=== PATIENT | female | born 1995 | race Caucasian/White ===

== ENCOUNTER 2017-11-01 06:41 | Emergency (ER) | payer OTHER ==
[~2017-11-01] VITALS: Ht 149.9 cm; Wt 46.6 kg
[~2017-11-01 06:41] MED LIST: AMPH10TA2 PO; FLUO40CA8 PO
[2017-11-01 06:47] VITALS: TEMP 36.3; Ht 149.9 cm; Wt 46.6 kg
[2017-11-01] MEDS ORDERED: ONDANSETRON INJ 2 MG/ML 2 ML VIAL IV STA (07:01)
[2017-11-01] MEDS ORDERED: SODIUM CHLORIDE 0.9% 500ML 500 ML IV STA (07:01)
[2017-11-01] MEDS ORDERED: MoRPHine SULFATE 2 MG/ML CARP IV STA (07:01)
--- NOTE | 2017-11-01 07:10 | EMERGENCY ROOM VISIT NOTE ---
History First contact with patient: 06:50 Chief Complaint: ABDOMINAL PAIN Stated Complaint: SEVERE ABD PAIN Nursing Triage Summary: upper abdominal pain since 0030 last night. vomiting. History of Present Illness The patient is a 22 year old female who presents to the Emergency Room with complaints of "abdominal pain, nausea". The patient states that around 12:30 AM she began with nausea, followed by left upper quadrant and epigastric abdominal pain and vomiting at 410 and 5:55 AM. She notes persistent nausea. She states that she did a new bag of salad and ate it last night. 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 No other significant medical history. She states that she also is experiencing sensation of constipation and increased flatulence. She rates her overall pain currently as an 8/10. Review of Systems A complete 10-point Review of Systems was discussed with the patient, with pertinent positives and negatives listed in the History of Present Illness. All remaining Review of Systems questions can be considered negative unless otherwise specified. Past Medical/Surgical History Medical Problems: (1) No known allergies (2) No significant medical problems Family History No pertinent family history Social History Smoking Status: Never Smoker Drug Use: none Marital Status: single Housing Status: lives with roommate Occupation Status: [employer] Current/Historical Medications Scheduled Ondasetron Odt (Zofran Odt), 4 MG SL Q6H Physical Exam Vital Signs Date Time Temp Pulse Resp B/P (MAP) Pulse Ox O2 Delivery O2 Flow Rate FiO2 11/01/17 09:59 55 18 91/57 98 11/01/17 08:53 63 16 98/48 98 Room Air 11/01/17 06:47 36.3 60 24 92/58 100 Room Air Physical Exam VITAL SIGNS - Vital signs and nursing notes were reviewed. Stable. GENERAL - 22-year-old female appearing her stated age who is in no acute distress. Communicates well with provider and answers questions appropriately. SKIN - Without rashes. No petechial rashes. HEAD - NC/AT. EYES - PERRL with EOMI bilaterally. Sclera anicteric. EARS - No deformities of external structures noted on gross examination bilaterally. NOSE - Midline and without cyanosis. No epistaxis or purulent drainage noted. MOUTH/OROPHARYNX - Without perioral cyanosis. LUNGS - Chest wall symmetric without accessory muscle use, intercostals retractions, or central cyanosis. Normal vesicular breath sounds CTA B/L. No wheezes, rales, or rhonchi appreciated. CARDIAC - RRR with S1/S2. No murmur, rubs, or gallops appreciated. ABDOMEN - Abdominal contour normal without pulsations or visible masses. BS normoactive all four quadrants. No tenderness, palpable masses, hepatosplenomegaly, or ascites noted. EXTREMITIES - No clubbing or peripheral cyanosis. No pretibial edema present. + 5/5 strength noted in UE/LE bilaterally. NEUROLOGIC - Cranial nerves II through XII grossly intact. Sensory intact to light touch throughout. PSYCH - A&O, and cooperates fully with examiner. Pt is very pleasant and interacts well with examiner. Medical Decision & Procedures ER Provider Diagnostic Interpretation: GALLBLADDER-ABD LIMITED HISTORY: 22 years-old Female Nausea, LUQ and epigastric abd pain, emesis acute nausea with left upper quadrant abdominal pain COMPARISON: None available TECHNIQUE: Multiple real-time sonographic images of the abdominal right upper quadrant were obtained assessing grayscale appearance and color flow FINDINGS: The visualized pancreas appears unremarkable. The liver is also within normal limits without focal mass lesion or intrahepatic biliary ductal dilation. There is no shadowing cholelithiasis or gallbladder wall thickening. There are two echogenic non-shadowing foci along the dependent gallbladder lumen measuring up to 4 mm without internal vascularity identified. Common bile duct is normal, 3 mm. Imaged right kidney is unremarkable without hydronephrosis identified. IMPRESSION: 1. No cholelithiasis or sonographic evidence of acute cholecystitis. 2. Two echogenic non-shadowing foci along the dependent gallbladder lumen measuring up to 4 mm suggest adherent focal gallbladder sludge or small gallbladder polyps. 3. No biliary ductal dilation. The above report was generated using voice recognition software. It may contain grammatical, syntax or spelling errors. Electronically signed by: Dio iPerce M.D. 11/01/2017 8:19 AM Dictated Date/Time: 11/01/2017 8:16 AM Laboratory Results 11/01/17 06:55 Red Blood Count 4.21, Mean Corpuscular Volume 82.9, Mean Corpuscular Hemoglobin 29.9, Mean Corpuscular Hemoglobin Concent 36.1, Mean Platelet Volume 9.7, Neutrophils (%) (Auto) 89.3, Lymphocytes (%) (Auto) 8.1, Monocytes (%) (Auto) 2.1, Eosinophils (%) (Auto) 0.1, Basophils (%) (Auto) 0.1, Neutrophils # (Auto) 10.29, Lymphocytes # (Auto) 0.93, Monocytes # (Auto) 0.24, Eosinophils # (Auto) 0.01, Basophils # (Auto) 0.01 11/01/17 06:55 11/01/17 08:19 Test 11/01/17 06:55 11/01/17 07:01 11/01/17 08:19 White Blood Count 11.51 K/uL (4.8-10.8) Red Blood Count 4.21 M/uL (4.2-5.4) Hemoglobin 12.6 g/dL (12.0-16.0) Hematocrit 34.9 % (37-47) Mean Corpuscular Volume 82.9 fL (80-100) Mean Corpuscular Hemoglobin 29.9 pg (25-34) Mean Corpuscular Hemoglobin Concent 36.1 g/dl (32-36) Platelet Count 188 K/uL (130-400) Mean Platelet Volume 9.7 fL (7.4-10.4) Neutrophils (%) (Auto) 89.3 % Lymphocytes (%) (Auto) 8.1 % Monocytes (%) (Auto) 2.1 % Eosinophils (%) (Auto) 0.1 % Basophils (%) (Auto) 0.1 % Neutrophils # (Auto) 10.29 K/uL (1.4-6.5) Lymphocytes # (Auto) 0.93 K/uL (1.2-3.4) Monocytes # (Auto) 0.24 K/uL (0.11-0.59) Eosinophils # (Auto) 0.01 K/uL (0-0.5) Basophils # (Auto) 0.01 K/uL (0-0.2) RDW Standard Deviation 40.2 fL (36.4-46.3) RDW Coefficient of Variation 13.2 % (11.5-14.5) Immature Granulocyte % (Auto) 0.3 % Immature Granulocyte # (Auto) 0.03 K/uL (0.00-0.02) Urine Color YELLOW Urine Appearance CLOUDY (CLEAR) Urine pH 5.5 (4.5-7.5) Urine Specific [place] 1.034 (1.000-1.030) Urine Protein 1+ (NEG) Urine Glucose (UA) NEG (NEG) Urine Ketones 3+ (NEG) Urine Occult Blood 3+ (NEG) Urine Nitrite NEG (NEG) Urine Bilirubin NEG (NEG) Urine Urobilinogen NEG (NEG) Urine Leukocyte Esterase NEG (NEG) Urine WBC (Auto) 1-5 /hpf (0-5) Urine RBC (Auto) 0-4 /hpf (0-4) Urine Hyaline Casts (Auto) 1-5 /lpf (0-5) Urine Epithelial Cells (Auto) >30 /lpf (0-5) Urine Bacteria (Auto) 1+ (NEG) Urine Crystals AMORPHOUS SEDIMENT (NONE Urine Mucus PRESENT (NONE PRSENT) Urine Yeast (Auto) (NONE PRSENT) Anion Gap 10.0 mmol/L (3-11) Est Creatinine Clear Calc Drug Dose 76.2 ml/min Estimated GFR () 123.2 Estimated GFR (Non- 106.3 BUN/Creatinine Ratio 17.6 (10-20) Calcium Level 9.0 mg/dl (8.5-10.1) Total Bilirubin 0.5 mg/dl (0.2-1) Alanine Aminotransferase (ALT/SGPT) 23 U/L (12-78) Alkaline Phosphatase 66 U/L (45-117) Total Protein 7.9 gm/dl (6.4-8.2) Albumin 4.5 gm/dl (3.4-5.0) Globulin 3.4 gm/dl (2.5-4.0) Albumin/Globulin Ratio 1.3 (0.9-2) Lipase 63 U/L (73-393) Urine Test NEG (NEG) Magnesium Level 2.0 mg/dl (1.8-2.4) Aspartate Amino Transf (AST/SGOT) 13 U/L (15-37) Medications Administered Medications (Trade) Dose Ordered Sig/Melinda Route Start Time Stop Time Status Last Admin Dose Admin Sodium Chloride 500 ml @ 999 mls/hr Q31M STAT IV 11/01/17 07:01 11/01/17 07:31 DC 11/01/17 07:01 999 MLS/HR Ondansetron HCl (Zofran Inj) 4 mg NOW STAT IV 11/01/17 07:01 11/01/17 07:03 DC 11/01/17 07:14 4 MG Morphine Sulfate (MoRPHine SULFATE INJ) 2 mg NOW STAT IV 11/01/17 07:01 11/01/17 07:03 DC 11/01/17 07:14 2 MG Medical Decision Patient was seen and evaluated as above. She presents to us today with epigastric abdominal pain she has vomiting and nausea. She is nontoxic on exam. After obtaining a thorough history and physical examination the above work up was performed. CBC reveals leukocytosis of 11.51. No significant anemia. Patient Should panel reveals sodium of 135. No concerning liver or kidney abnormality. Lipase 63. Urine reveals what I believe to be a contaminated sample. Urine test negative. Ultrasound reveals essentially no acute process. After small amount of morphine, fluids and Zofran she is feeling much better. She'll be sent home with Zofran by mouth. She is to follow-up with [facility] or return if worsening. The patient was educated upon management, had questions answered prior to discharge, and was discharged home in good condition. Case was discussed with the attending physician In the evaluation and treatment of this patient the following differential diagnoses were entertained: Acute cholecystitis, gastroenteritis, pancreatitis, among others. Impression Primary Impression: Acute gastroenteritis Departure Information Dispostion Home / Self-Care Condition GOOD Prescriptions Ondasetron Odt (ZOFRAN ODT) 4 Mg Tab 4 MG SL Q6H for Nausea, #15 TAB Prov: Abelino Howard PA-C 11/01/17 Referrals No Doctor, Assigned (PCP) Patient Instructions My [facility] Additional Instructions You have been treated in the Emergency Department your Abdominal Pain. Laboratory results and imaging studies have ruled out any emergent causes for your abdominal pain which would warrant admission or surgery. You have been prescribed Zofran to be used for any nausea or vomiting. Take as prescribed. For pain control, you can use the following [id number] medicines: - Regular strength (325mg/tab) Tylenol (acetaminophen) 2 tabs every 4-6 hours as needed. Do not exceed 12 tablets in a 24 hour period. Avoid taking more than 3 grams (3000 mg) of Tylenol per day. This includes any other sources of acetaminophen you may take on a regular basis. - Regular strength (200 mg/tab) Advil (ibuprofen) 1-2 tabs every 4-6 hours as needed. Do not exceed a dose of 3200 mg per day. Drink plenty of water and stay well hydrated. As with any trip to the Emergency Department, you should follow-up with your Primary Care Provider from today's visit. Return to the emergency department if your symptoms persist despite treatment plan outlined above or if the following symptoms occur: increased fevers, chills , worsening nausea/vomiting, blood in your stool or urine.
[2017-11-01 07:23] LABS: BASO % 0.1 %; BASO ABS # 0.01 K/uL (0-0.2); EOS % 0.1 %; EOS ABS # 0.01 K/uL (0-0.5); HEMATOCRIT 34.9 % (37-47); HEMOGLOBIN 12.6 g/dL (12.0-16.0); IG# 0.03 K/uL (0.00-0.02); LYMPH % 8.1 %; LYMPH ABS # 0.93 K/uL (1.2-3.4); MEAN CELL VOLUME 82.9 fL (80-100); MEAN CORPUSCULAR HEMOGLOBIN 29.9 pg (25-34); MEAN CORPUSCULAR HGB CONC 36.1 g/dl (32-36); MEAN PLATELET VOLUME 9.7 fL (7.4-10.4); MONO % 2.1 %; MONO ABS # 0.24 K/uL (0.11-0.59); NEUT % 89.3 %; NEUT ABS # 10.29 K/uL (1.4-6.5); PLATELET COUNT 188 K/uL (130-400); RED CELL DISTRIBUTION WIDTH CV 13.2 % (11.5-14.5); RED CELL DISTRIBUTION WIDTH SD 40.2 fL (36.4-46.3); WHITE BLOOD COUNT 11.51 K/uL (4.8-10.8)
[2017-11-01 07:50] LABS: ALBUMIN 4.5 gm/dl (3.4-5.0); CREATININE 0.79 mg/dl (0.60-1.20); TOTAL PROTEIN 7.9 gm/dl (6.4-8.2)
--- NOTE | 2017-11-01 08:20 | DIAGNOSTIC IMAGING REPORT ---
GALLBLADDER-ABD LIMITED HISTORY: 22 years-old Female Nausea, LUQ and epigastric abd pain, emesis acute nausea with left upper quadrant abdominal pain COMPARISON: None available TECHNIQUE: Multiple real-time sonographic images of the abdominal right upper quadrant were obtained assessing grayscale appearance and color flow FINDINGS: The visualized pancreas appears unremarkable. The liver is also within normal limits without focal mass lesion or intrahepatic biliary ductal dilation. There is no shadowing cholelithiasis or gallbladder wall thickening. There are two echogenic non-shadowing foci along the dependent gallbladder lumen measuring up to 4 mm without internal vascularity identified. Common bile duct is normal, 3 mm. Imaged right kidney is unremarkable without hydronephrosis identified. IMPRESSION: 1. No cholelithiasis or sonographic evidence of acute cholecystitis. 2. Two echogenic non-shadowing foci along the dependent gallbladder lumen measuring up to 4 mm suggest adherent focal gallbladder sludge or small gallbladder polyps. 3. No biliary ductal dilation. The above report was generated using voice recognition software. It may contain grammatical, syntax or spelling errors. Electronically signed by: Dio Pierce M.D. 11/01/2017 8:19 AM Dictated Date/Time: 11/01/2017 8:16 AM
[2017-11-01 08:47] LABS: POTASSIUM 4.2 mmol/L (3.5-5.1)
[2017-11-01] MEDS ORDERED: ONDA4TAB10 SL (09:44)
[2017-11-01 09:59] VITALS: BP 91/57; PULSE 55; O2SAT 98
== END 2017-11-01 09:59 | disposition home or self-care (01) ==
LOC: C.EDB 06:42
DX: K52.9 Noninfective gastroenteritis and colitis, unspecified (principal)